=== PATIENT | male | born 1955 | race African-American/Black ===

== ENCOUNTER 2016-10-10 13:18 | Observation (INO) | payer OTHER ==
[2016-10-10] MEDS ORDERED: Aspirin Low Dose CHEW TAB* 81 MG PO ONE (14:18)
--- NOTE | 2016-10-10 14:45 | RAD ---
Indication: Central chest pain for a couple of days. History of asthma. Tobacco use. Comparison: None. Technique: Upright AP 1430 hours Report: Elevated lung volumes. No focal pulmonary lesion, alveolar consolidation, pleural effusion, pneumothorax. The heart, pulmonary vasculature, and mediastinal contours are unremarkable. Unremarkable osseous structures for age. IMPRESSION: Elevated lung volumes favoring chronic obstructive pulmonary disease. No acute cardiopulmonary process evident.
[2016-10-10 15:12] LABS: Hematocrit 45 % (42-52); Mean Corpuscular HGB Conc 33 g/dl (31-36); Mean Corpuscular Hemoglobin 30 pg (27-31); Mean Corpuscular Volume 91 fL (80-94); Mean Platelet Volume 9 um3 (7.4-10.4); Red Blood Count 4.95 10^6/ul (4.0-5.4); Red Cell Distribution Width 14 % (10.5-15); White Blood Count 3.8 10^3/ul (3.5-10.8)
[2016-10-10 15:32] LABS: Troponin I 0.03 ng/mL (<0.04)
[2016-10-10 15:41] LABS: Albumin 4.1 g/dL (3.2-5.2); BUN/Creatinine Ratio 9.8 (8-20); Calcium 9.6 mg/dL (8.6-10.3); EGFR African American 85.7 (>60); EGFR Non-African American 66.7 (>60); Globulin 2.7 g/dL (2-4); Total Bilirubin 0.8 mg/dL (0.2-1.0); Total Protein 6.8 g/dL (6.4-8.9)
--- NOTE | 2016-10-10 15:45 | ADMNOTE ---
Subjective Date of Service: 10/10/16 Interval History: ADMISSION HISTORY AND PHYSICAL EXAM: Allergies Allergy/AdvReac Type Severity Reaction Status Date / Time No Known Allergies Allergy Verified 10/10/16 13:22 Home Medications Medication Instructions Recorded Confirmed Type NK [No Home Medications Reported] 10/10/16 10/10/16 History HPI: The patient has had chest pain intermittently for 2-3 weeks, usually at rest not during exertion. It occursa about once a day and lasts about 2 hrs. He had one thiws AM about 10:30 AM which was the worst one so far. No radiation or associated sx's. It is is the lower sternal area. Family History: Findings - Father in 50's of DE. Mother of breast cancer. 2 older brothers of heart disease. 1 sister of ca pancreas. Social History: Findings - Prisoner at [employer]. . Smoker. No alcohol abuse. SDM is his brother Nahun. Past Medical History: Findings - No surgery. Review of Systems - Measurements Intake and Output: Intake and Output Last 24 Hours 10/08/16 10/09/16 10/10/16 10/11/16 06:59 06:59 06:59 06:59 Weight 225 lb - Review of Systems Constitutional Symptoms: Positive: Weight Gain - 20 lbs in past 6 months Dermatology: Negative: Normal, Rash, Skin Lesions, Cancer, Skin Lumps, Other HEENT: Positive: Normal Eyes: Positive: Normal Thyroid: Positive: Normal Pulmonary: Positive: Normal Cardiology: Positive: Chest Pain Gastroenterology: Positive: Normal Genital - Urinary: Positive: Normal Genitourinary - Male: Negative: Prostatism, Erectile Dysfunction, Family Hx of Prostate Cancer, Other Musculoskeletal: Negative: Joint Pain, Joint Stiffness, Arthritis, Osteoporosis, Low Back Pain , Sciatica, Joint Deformities, Kyphoscoliosis, Other Endocrinology: Positive: Normal Hematologic/Lymphatic: Negative: Anemia, Easy Brusing, Hx Leukemia, Hx Lymphoma, Use of Anticoagulant, Use of Antiplatelet Drugs, Other Neurology: Positive: Normal Psychiatry: Positive: Normal Allergic/Immunologic: Negative: Hx Anaphylaxis, Hx Angioedema, Hx Environmental, Hx Seasonal, Athsma, Hx HIV, Immunocompromise, Swollen Glands LymphNodes, Other Objective Active Medications: Aspirin (Aspirin Low Dose Tab*) 81 mg PO DAILY SONAL Enoxaparin Sodium (Lovenox(*)) 40 mg SUBCUT Q24H SONAL Vital Signs 10/10/16 10/10/16 10/10/16 13:22 13:37 13:38 Temperature 98.6 F Pulse Rate 72 62 Respiratory 16 21 Rate Blood Pressure 161/92 137/94 (mmHg) O2 Sat by Pulse 99 98 Oximetry Oxygen Devices in Use Now: None Appearance: Alert, partly up on ED stretcher. In good spirits. Looks comfortable. Eyes: No Scleral Icterus Ears/Nose/Mouth/Throat: Clear Oropharnyx, Mucous Membranes Moist Neck: NL Appearance and Movements; NL JVP, No Thyroid Enlargement, Masses Respiratory: Symmetrical Chest Expansion and Respiratory Effort, Clear to Auscultation, Clear to Percussion Cardiovascular: NL Sounds; No Murmurs; No JVD, RRR, No Edema, - Extremities: No Edema, No Clubbing, Cyanosis, - Skin: No Rash or Ulcers, No Nodules or Sclerosis, - Neurological: Alert and Oriented x 3, NL Sensation Result Diagrams: 10/10/16 14:45 10/10/16 14:45 Assess/Plan/Problems-Billing Assessment: - Patient Problems (1) Chest pain Current Visit: Yes Status: Acute Code(s): R07.9 - CHEST PAIN, UNSPECIFIED SNOMED Code(s): 51423954 Comment: Pain is atypical but he has many risk factors. Tele, second troponin and ECG. Exercise nuclear stress test 10/11. (2) Tobacco abuse Current Visit: Yes Status: Acute Code(s): Z72.0 - TOBACCO USE SNOMED Code( s): 437639585 Comment: Pt advised to quit smoking and avoid second hand smoke.
[2016-10-10] MEDS ORDERED: Enoxaparin(*) 40 MG/0.4 ML SYR SUBCUT SCH (16:00)
[2016-10-10 16:14] LABS: Potassium 4.5 mmol/L (3.5-5.0)
[2016-10-11] MEDS ORDERED: Aspirin Low Dose CHEW TAB* 81 MG PO SCH (09:00)
[2016-10-11 09:06] LABS: Urine Bilirubin Negative (Negative); Urine Glucose Negative (Negative); Urine Nitrite Negative (Negative)
--- NOTE | 2016-10-11 10:14 | PN ---
Hospitalist Progress Note . HOSPITALIST DISCHARGE NOTE: See dc instructions and summary by me. Patient stable for dc dc instructions reviewed with the patient at the bedside. DC patient today.
[2016-10-11 11:28] VITALS: BP 150/92
--- NOTE | 2016-10-11 12:15 | RAD ---
HISTORY: Chest pain, hypertension COMPARISONS: None TECHNIQUE: A 1 day stress/rest myocardial perfusion study was performed, with exercise stress. The exercise portion was performed using the Marty protocol, for a total METs of 10.1. The stress portion was monitored by Dr. Martin. Gated SPECT imaging was performed, with CT-based attenuation correction DOSE: Stress: Technetium 99m tetrofosmin, 25.14 millicuries, injected at 10:32 AM on June 10, 2017 Rest: Technetium 99m tetrofosmin, 10.7 millicuries, injected at 7:40 AM on June 10, 2017 Pharmacologic agent: None FINDINGS: CARDIAC MONITORING: No EKG changes of ischemia with stress. Maximum heart rate of 145 bpm, 91% of predicted EF: 54 % TID: 0.91 MOTION: Normal motion, with normal wall thickening. PERFUSION: There are no fixed or reversible perfusion defects. OTHER: None IMPRESSION: NO FIXED OR REVERSIBLE PERFUSION DEFECTS ASSESSMENT: LOW RISK. Based on imaging criteria from ACC/AHA 2002. Guideline Update for the Management of Patient's with Chronic Stable Angina, table 23. Noninvasive Risk Stratification.
--- NOTE | 2016-10-12 03:07 | DS ---
DISCHARGE SUMMARY: DATE OF ADMISSION: 10/10/16 DATE OF DISCHARGE: 10/11/16 STATUS DURING HOSPITALIZATION: Observation. PRIMARY CARE PROVIDER: [facility] [employer] Sales Consultant PRINCIPAL DISCHARGE DIAGNOSES: 1. Chest pain with low risk nuclear stress test as per ACC/AHA criteria. 2. Tobacco abuse. DISCHARGE MEDICATION REGIMEN: Aspirin 81 mg by mouth daily. HISTORY OF PRESENT ILLNESS AND HOSPITAL COURSE: Please see the H and P by Dr. Yunior Roy on 10/10/16. In brief, the patient had chest pain intermittently for about 2 to 3 weeks usually at rest and not during exertion. The patient states this happened once a day and last for about 2 hours. This happened the morning of admission and was the worst so far without radiation or associated symptoms. It was in the lower sternal area and there was concern for coronary disease and acute coronary syndrome. The patient was referred to the hospitalist service through the emergency room at [facility] and the patient was placed on observation status and serial troponins were ordered. The serial troponins were currently negative. The patient proceeded to a nuclear exercise stress test, which was rated low risk by ACC/AHA criteria. The patient had no continued pain. He did well with his diet. His vital signs were normal and stable. The remainder of his labs were unremarkable and the patient was counseled with respect to tobacco abuse and discharged in stable condition back to the [facility]. Followup will be arranged by the medical staff at [facility] and the patient should take a prophylactic aspirin, but no other medications were indicated based on his lab work and vital signs and overall presentation. TIME SPENT: Total time taken to discharge Mr. Mora was 40 minutes, greater than half the time spent going over the discharge instructions with the patient explaining the results of the stress test and preparing the discharge from a logistical standpoint. CONDITION ON DISCHARGE: Stable. CC: [facility] - [employer]idal Stylist Sales Consultant* [id number]/[facility] #: [id number] SARAH
--- NOTE | 2016-10-27 20:27 | ED ---
Christiano Storm Adam, scribed for Andres Bray MD on 10/10/16 at 1428 . HPI Chest Pain - HPI Summary HPI Summary: Pt is a 61 year old male presenting with CP. He states that he has been having CP intermittently for the past few weeks but it was worse this morning. It set on at approximately 10:00 while the pt was sitting and watching TV and lasted for "a couple hours." Pt describes the pain as sharp and located in the mid- sternal region of his chest. He c/o SOB and some tingling associated with the CP. Pt also reports recent abdominal pain, burning during urination, and hematuria 3-4 days ago. PMHx includes HTN and borderline DM, and the pt is on hydrochlorothiazide. He has had UTI before. Pt states that everyone in his immediate family has before reaching the age of 60. - History of Current Complaint Chief Complaint: EDChestPainROMI Time Seen by Provider: 10/10/16 14:18 Hx Obtained From: Patient Onset/Duration: Started Hours Ago, Atraumatic, Resolved Timing: Constant, Lasting Hours Initial Severity: Moderate Current Severity: None Pain Intensity: 5 Pain Scale Used: 0-10 Numeric Chest Pain Location: Mid Sternal Chest Pain Radiates: No Character: Sharp/Stabbing Aggravating Factor(s): Nothing Alleviating Factor(s): Nothing Associated Signs and Symptoms: Positive: Tingling, Shortness of Breath - Allergy/Home Medications Allergies/Adverse Reactions: Allergies Allergy/AdvReac Type Severity Reaction Status Date / Time No Known Allergies Allergy Verified 10/10/16 13:22 Home Medications: Home Medications NK [No Home Medications Reported] 10/10/16 [History Confirmed 10/10/16] PMH/Surg Hx/FS Hx/Imm Hx Infectious Disease History: No Infectious Disease History: Denies: Traveled Outside the [place] in Last 30 Days - Family History Known Family History: Positive: Other - All immediate family members have before reaching the age of 60 - Social History Occupation: Unemployed - Incarcerated Lives: Alone Alcohol Use: None Hx Substance Use: No Substance Use Type: Reports: None Hx Tobacco Use: No Smoking Status (MU): Never Smoked Tobacco Review of Systems Negative: Fever, Chills Negative: Erythema Negative: Sore Throat Positive: Chest Pain Positive: Shortness Of Breath. Negative: Cough Negative: Abdominal Pain, Vomiting, Nausea Negative: Myalgia, Edema Negative: Rash Neurological: Other - Negative dizziness Positive: Numbness - Tingling All Other Systems Reviewed And Are Negative: Yes Physical Exam - Summary Physical Exam Summary: Constitutional: Well-developed, Well-nourished, Alert. (-) Distressed Skin: Warm, Dry HENT: Normocephalic; Atraumatic Eyes: Conjunctiva normal Neck: Musculoskeletal ROM normal neck. (-) JVD, (-) Stridor, (-) Tracheal deviation Cardio: Rhythm regular, rate normal, Heart sounds normal; Intact distal pulses; The pedal pulses are 2+ and symmetric. Radial pulses are 2+ and symmetric. (-) Murmur Pulmonary/Chest wall: Effort normal. (-) Respiratory distress, (-) Wheezes, (-) Rales Abd: Soft, (-) Tenderness, (-) Distension, (-) Guarding, (-) Rebound Musculoskeletal: (-) Edema Lymph: (-) Cervical adenopathy Neuro: Alert, Oriented x3 Psych: Mood and affect Normal Triage Information Reviewed: Yes Vital Signs On Initial Exam: Initial Vitals Temp Pulse Resp BP Pulse Ox 98.6 F 72 16 161/92 99 10/10/16 13:22 10/10/16 13:22 10/10/16 13:22 10/10/16 13:22 10/10/16 13:22 Vital Signs Reviewed: Yes - Goodwin Coma Scale Coma Scale Total: 15 Diagnostics - Vital Signs Vital Signs Temp Pulse Resp BP Pulse Ox 10/10/16 13:38 62 21 98 10/10/16 13:37 137/94 10/10/16 13:22 98.6 F 72 16 161/92 99 - Laboratory Result Diagrams: 10/10/16 14:45 Lab Statement: Any lab studies that have been ordered have been reviewed, and results considered in the medical decision making process. Chest Pain Course/Dx - Diagnoses Provider Diagnoses: Chest pain, unspecified - Provider Notifications Discussed Care Of Patient With: Dr. Roy at 14:35. He is aware of the patient. Discharge - Discharge Plan Condition: Stable Disposition: ADMITTED TO [facility] documentation as recorded by the Christiano byrnes Adam accurately reflects the service I personally performed and the decisions made by me, Andres Bray MD.
== END 2016-10-11 15:47 ==
LOC: ED 13:18 → MEDTELE 15:26 → EEVIPCON 15:26
PROVIDERS: ADMIT Internal Medicine; ATTEND Internal Medicine
DX: R07.9 Chest pain, unspecified (principal); F17.210 Nicotine dependence, cigarettes, uncomplicated
CPT/HCPCS: 36415; 71010; 78452; 80053; 81003; 83605; 84484; 85025; 93005; 93017; 96372; 99285; 99406; A9270-GY; A9502; G0378; J1650